=== PATIENT | female | born 1970 | race Caucasian/White ===

== ENCOUNTER 2018-04-09 23:13 | Inpatient (IN) | payer MEDICARE, MEDICAID ==
[~2018-04-09] VITALS: Ht 162.6 cm; Wt 71.4 kg
[~2018-04-09 23:13] MED LIST: ALBU8.5H8 INH; CLON1TAB5 PO; CLON2TAB11 PO; CYCL-289 PO; DOCU100C36 PO; FENT1PAT2 TP; HYDR200T81 PO; ONDA4TAB5 PO; PRED-170 PO; PREG200C PO; RANI150T43 PO; SCOP1PAT11 TD; SUMA6VIA SQ; TOPI100T PO
[2018-04-09] MEDS ORDERED: IV NORMAL SALINE 1000 ML BAG IV ONE (23:30)
[2018-04-09] MEDS ORDERED: ONDANSETRON 4 MG/2 ML VIAL IV ONE (23:30)
[2018-04-09] MEDS ORDERED: PANTOPRAZOLE SODIUM 40 MG VIAL IV ONE (23:30)
[2018-04-09] MEDS ORDERED: HYDROMORPHONE 1 MG/1 ML DISP.SYRIN IV ONE (23:30)
[2018-04-09] MEDS ORDERED: HYDROMORPHONE 2 MG/1 ML DISP.SYRIN ONE (23:54)
[2018-04-09] MEDS ORDERED: PANTOPRAZOLE SODIUM 40 MG VIAL ONE (23:54)
[2018-04-09] MEDS ORDERED: ONDANSETRON 4 MG/2 ML VIAL ONE (23:54)
[2018-04-10] VITALS (8 sets, daily range): BP systolic 104–136; BP diastolic 37–70
[2018-04-10] MEDS ORDERED: diphenhydrAMINE 50 MG/1 ML VIAL ONE ×4 (00:04→02:33)
[2018-04-10] MEDS ORDERED: diphenhydrAMINE 50 MG/1 ML VIAL IV ONE ×3 (00:15→11:00)
[2018-04-10 00:23] LABS: BASOPHILS # (AUTO) 0.1 K/uL (0.0-8.0); BASOPHILS % (AUTO) 0.7 % (0.0-2.0); EOSINOPHILS % (AUTO) 0.4 % (0.0-7.0); HEMATOCRIT 41.4 % (31.2-41.9); HEMOGLOBIN 14.1 g/dL (10.9-14.3); LYMPHOCYTES # (AUTO) 1.4 K/uL (20.0-40.0); LYMPHOCYTES % (AUTO) 18.1 % (20.5-51.5); MEAN CORPUSCULAR HEMOGLOBIN 30.5 uug (24.7-32.8); MEAN CORPUSCULAR HGB CONC 34 g/dL (32.3-35.6); MEAN CORPUSCULAR VOLUME 89.7 fL (75.5-95.3); MONOCYTES # (AUTO) 0.6 K/uL (2.0-10.0); MONOCYTES % (AUTO) 7.5 % (0.0-11.0); NEUTROPHILS # (AUTO) 5.6 K/uL (1.8-8.9); NEUTROPHILS % (AUTO) 73.3 % (38.5-71.5); PLATELET COUNT (AUTO) 205 K/uL (179-408); RED BLOOD CELL COUNT(AUTO) 4.61 MIL/uL (3.63-4.92); WHITE BLOOD COUNT (AUTO) 7.6 K/uL (3.8-11.8)
[2018-04-10 00:29] LABS: CREATININE 0.9 mg/dL (0.6-1.3); POTASSIUM 3.5 mmol/L (3.5-5.1)
--- NOTE | 2018-04-10 00:40 | NUR ---
PT IN ROUTE TO CT IN [facility] WITH TRANSPORTER
[2018-04-10 00:42] LABS: BILIRUBIN,DIRECT 0.3 mg/dL (0.0-0.2); BILIRUBIN,TOTAL 1.6 mg/dL (0.2-1.0); TOTAL PROTEIN, SERUM 7.4 g/dL (6.4-8.2)
--- NOTE | 2018-04-10 00:58 | NUR ---
PT RETURNS FROM CT IN [facility] WITH TRANSPORTER
--- NOTE | 2018-04-10 01:29 | NUR ---
PT IN BED QUIETLY USING CELL PHONE. PT IS CALM AND COOPERATIVE. PT REPORTS BEING IN LESS PAIN THAN AT TIME OF ARRIVAL TO ED. NO SIGNS OF DISTRESS WITNESSED AT THIS TIME.
[2018-04-10] MEDS ORDERED: HYDROMORPHONE 2 MG/1 ML DISP.SYRIN ONE (02:09)
[2018-04-10] MEDS ORDERED: HYDROMORPHONE 1 MG/1 ML DISP.SYRIN IV ONE (02:15)
[2018-04-10] MEDS ORDERED: IV NORMAL SALINE 250 ML IV ONE (02:45)
[2018-04-10] MEDS ORDERED: SWABABLE VALVE TRANSFER SET EA MC ONE (02:45)
[2018-04-10] MEDS ORDERED: IOHEXOL 350 100 ML INFUS..BTL ONE (02:45)
--- NOTE | 2018-04-10 03:30 | NUR ---
PT IN ROUTE BACK TO CT FOR CTA IN [facility] WITH TRANSPORTER
--- NOTE | 2018-04-10 04:02 | NUR ---
PT RETURNS FROM CT IN [facility] WITH TRANSPORTER
[2018-04-10] MEDS ORDERED: benadryl PO (04:52)
[2018-04-10] MEDS ORDERED: desmopressin IV (04:52)
[2018-04-10] MEDS ORDERED: metoprolol PO (04:52)
[2018-04-10] MEDS ORDERED: LOSA25TA13 PO (04:52)
[2018-04-10] MEDS ORDERED: ESTR0.5T PO (04:52)
--- NOTE | 2018-04-10 04:55 | NUR ---
REPORT GIVEN TO TELEMETRY NURSE, WALDEMAR
[2018-04-10] MEDS ORDERED: MUPI22OI2 (04:57)
[2018-04-10] MEDS ORDERED: SUMATRIPTAN SUCCINATE 6 MG/0.5 ML VIAL SQ PRN ×3 (05:00→12:00)
[2018-04-10] MEDS ORDERED: ONDANSETRON HCL 4 MG TABLET PO PRN (05:00)
[2018-04-10] MEDS ORDERED: BENADRYL 50 MG PO PRN (05:00)
[2018-04-10] MEDS ORDERED: HYDROMORPHONE 1 MG/1 ML DISP.SYRIN IV PRN (05:15)
[2018-04-10] MEDS ORDERED: MAGNESIUM HYDROXIDE 30 ML LIQUID UDC PO PRN (05:15)
[2018-04-10] MEDS ORDERED: ACETAMINOPHEN 325 MG TABLET PO PRN (05:15)
[2018-04-10] MEDS ORDERED: HYDROCODONE/APAP 5-325MG TABLET PO PRN (05:15)
[2018-04-10] MEDS ORDERED: Z GUARD REMEDY PASTE 57 GM TUBE TOP PRN (05:15)
--- NOTE | 2018-04-10 05:30 | NUR ---
ADMITTED PATIENT IN THE TELE UNIT UNDER THE CARE DR. KAUFFMAN, BELONGING LIST DONE.
--- NOTE | 2018-04-10 05:30 | NUR ---
Pt. admitted to TELEMETRY, under care of Dr. KAUFFMAN Belongs List completed
[2018-04-10] MEDS ORDERED: IV NS 1000 ML 1,000 ML IV PRN (06:00)
--- NOTE | 2018-04-10 07:30 | NUR ---
Awake, laert, oriented x 4, on high back rest, eating breakfast. Discussed plan of care
[2018-04-10] MEDS ORDERED: HYDROXYCHLOROQUINE SULFATE 200 MG TABLET PO SCH (09:00)
[2018-04-10] MEDS: LOSARTAN POTASSIUM 25 MG TABLET PO SCH (09:00)
[2018-04-10] MEDS ORDERED: FENTANYL 12 MCG/HR PATCH TD SCH (09:00)
[2018-04-10] MEDS ORDERED: ESTRADIOL 1 MG TABLET PO SCH (09:00)
[2018-04-10] MEDS ORDERED: DOCUSATE SODIUM 100 MG CAPSULE PO SCH (09:00)
[2018-04-10] MEDS: HYDROMORPHONE 2 MG/1 ML DISP.SYRIN IV PRN ×2 (09:10→18:39)
[2018-04-10] MEDS ORDERED: CLONAZEPAM 1 MG TABLET PO ONE (09:30)
[2018-04-10] MEDS ORDERED: ESTR42.53 VG (11:23)
--- NOTE | 2018-04-10 11:30 | NUR ---
Transported to [facility] for MRA brain
[2018-04-10] MEDS ORDERED: SCOPOLAMINE HYDROBROMIDE 1.5 MG PATCH TD SCH ×2 (11:34→14:45)
[2018-04-10] MEDS ORDERED: METO-357 PO (11:46)
[2018-04-10] MEDS ORDERED: GADODIAMIDE 2.5 MMOL/5 ML VIAL ONE (12:04)
[2018-04-10] MEDS ORDERED: GADODIAMIDE 5 MMOL/10 ML VIAL ONE (12:04)
[2018-04-10] MEDS ORDERED: ALBUTEROL SULFATE 2.5 MG/3 ML NEBU NEB PRN (12:45)
[2018-04-10] MEDS ORDERED: ALBUTEROL SULFATE 8 GM HFA.AER.AD INH PRN (12:45)
--- NOTE | 2018-04-10 13:10 | NUR ---
Patient came back to room 218 from [facility] via ambulance in stable condition. No acute distress. coupon collection clerk was placed back on. IV fluids was connected. Lunch tray was served. Will continue to monitor
[2018-04-10] MEDS: predniSONE 50 MG TABLET PO SCH (14:46)
[2018-04-10] MEDS ORDERED: HYDR20CR3 TOP (14:56)
[2018-04-10] MEDS ORDERED: ESCI5TAB PO (14:56)
--- NOTE | 2018-04-10 17:43 | NUR ---
Patient complained of blurred vision both eyes. Pupils checked, dilated. No other deficits noted. Vital signs checked. BG checked 117. Called Code stroke. Felipe Key informed. Patient transported to CT scan by bed
[2018-04-10] MEDS: HYDROCORTISONE 2.5% CREAM 20 GM TUBE TOP SCH (18:00)
[2018-04-10] MEDS: ESCITALOPRAM OXALATE 10 MG TABLET PO SCH (18:00)
[2018-04-10] MEDS: MUPIROCIN 2% OINT 22 GM TUBE TP SCH (18:00)
--- NOTE | 2018-04-10 18:20 | NUR ---
Patient in from Medical floor via bed accompanied by nurses. Code stroke in progress pt. just back from head ct. Felipe N.P. at bedside. Neuro roman pt. AAOX4. Vitals signs stable. At this time orders to bolus pt with 500 Ns. pt. also medicated for pain and c/of nausea and vomiting.
[2018-04-10] MEDS ORDERED: ONDANSETRON 4 MG/2 ML VIAL IV PRN (18:30)
[2018-04-10] MEDS: ONDANSETRON 4 MG/2 ML VIAL IV PRN (18:51)
[2018-04-10] MEDS ORDERED: IV NORMAL SALINE 500 ML IV ONE (19:00)
[2018-04-10] MEDS ORDERED: IV NORMAL SALINE 500 ML BAG IV ONE (19:00)
--- NOTE | 2018-04-10 19:15 | NUR ---
JOHN BACA CAME AND SAW PATIENT . WITH ORDERS TO TRANSFER PATIENT TO CCU FOR CLOSE MONITORING AFTER A CODE STROKE . NEEDS MRA OF THE NECK AND MRI WITH AND WITH OUT CONTRAST . AMBULANCE ARRANGEMENT DONE AND SHE NEEDS A PICC LINE IVF ACCESS .
--- NOTE | 2018-04-10 19:37 | NUR ---
Report given to rn. Lopez pending procedures and orders endorse. Nurse informed to obtain consent for procedure.
--- NOTE | 2018-04-10 20:00 | NUR ---
[facility] NURSING STROKE ASSESSMENT DONE ,SCORE = 1.ABLE AAOX4. MAEX4. ABLE TO FOLLOW AND ABLE TO ANSWERS QUESTIONS . MRI QUESTIONER DONE AND PATIENT SIGN THE CONSENT FORM .
--- NOTE | 2018-04-10 20:15 | NUR ---
VOIDED USING THE BEDPAN , PERINEAL CARE ASSISTED , PATIENT ABLE TO WASH PRIVATE AREA WITH WASH CLOTH .
--- NOTE | 2018-04-10 20:30 | NUR ---
PICC LINE RN PLACE LEFT UPPER ARM 3 LUMEN PICC LINE IVF ACCESS . OK TO USE.
--- NOTE | 2018-04-10 20:30 | NUR ---
WARM PATIENT FOOD , WANTS TO EAT , PATIENT ABLE TO SIT AT THE SIDE OF THE BED AND ABLE TO FEED SELF . NO DIFFICULTY SWALLOWING .TOLERATED FOOD .
[2018-04-10] MEDS: TOPIRAMATE 25 MG TABLET PO SCH (21:00)
[2018-04-10] MEDS ORDERED: DOCUSATE SODIUM 250 MG CAPSULE PO PRN (21:00)
[2018-04-10] MEDS ORDERED: DOCUSATE SODIUM 250 MG CAPSULE PO SCH (21:00)
--- NOTE | 2018-04-10 21:00 | NUR ---
KEPT PATIENT ON BEDREST ,BED RENEE SERVED PATIENT VOIDED , CLEAR YELLOWISH URINE ABOUT 300 ML . PERINEAL CARE DONE .
[2018-04-10] MEDS: diphenhydrAMINE 50 MG CAPSULE PO PRN (21:13)
--- NOTE | 2018-04-10 21:13 | NUR ---
GIVEN BENADRYL PRN 50 MG PO ,FOR GENERALIZED BODY ITCHING .
--- NOTE | 2018-04-10 21:40 | NUR ---
AMBULANCE transportation here to bring patient to [place] for MRI WITH AND WITH OUT CONTRAST AND MRA OF THE NECK .report given to chemotherapist and RN.
--- NOTE | 2018-04-10 23:50 | NUR ---
BACK FROM CENTER TOLERATED THE TEST . MRI BRAIN AND MRA NECK COMPLETED.CONNECTED BACK TO CCU MONITOR .PATIENT AAOX4/MAEX4.
[2018-04-11] VITALS (16 sets, daily range): BP systolic 84–152; BP diastolic 41–80
[2018-04-11] MEDS: IV NS 1000 ML 1,000 ML IV PRN ×3 (00:11→23:16)
[2018-04-11] MEDS: CLONAZEPAM 1 MG TABLET PO SCH ×2 (00:11→20:29)
[2018-04-11] MEDS: HYDROMORPHONE 2 MG/1 ML DISP.SYRIN IV PRN ×2 (00:16→04:25)
--- NOTE | 2018-04-11 00:16 | NUR ---
GIVEN DILAUDID PRN PER REQUEST, PER PATIENT 04/06 HEADACHE .
--- NOTE | 2018-04-11 00:20 | NUR ---
REPORTS OF THE MRI AND MRA CALLED TO [facility] .MRA NECK W/O CONTRAST UNREMARKABLEAND MRI OF THE BRAIN UNREMARKABLE .NO ORDERS MADE .
--- NOTE | 2018-04-11 00:45 | NUR ---
REQUESTED SNACKS GIVEN 2 VANILLA PUDDINGS AND 2 JELLO HOB UP ,PATIENT ABLE TO FEED SELF .NO PROBLEM SWALLOWING . ATE 100%.
--- NOTE | 2018-04-11 04:10 | NUR ---
PATIENT VOIDED ,ASSISTED AND PLACED BEDPAN . VOIDED ABOUT 400 ML OF YELLOWISH URINE . COLLECTED FOR URINE C AND S AND URINALYSIS, PATIENT REQUESTED SNACKS GIVEN 2 VANILLA PUDDING AND 2 JELLO ,HOB UP . PATIENT ABLE TO FEED SELF ATE 100%.
--- NOTE | 2018-04-11 04:25 | NUR ---
GIVEN DILAUDID PRN FOR BACK PAIN AND LEFT EYE PAIN PER PATIENT PAIN LEVEL IS 8 /10 DULL TO SHARP PAIN .
--- NOTE | 2018-04-11 04:51 | NUR ---
[facility] COLLECTED AND FLUSHED PICC LINE . SEND MRSA AND URINE FOR C AND S AND URINALYSIS .
[2018-04-11] MEDS ORDERED: diphenhydrAMINE 50 MG/1 ML VIAL ONE (05:04)
[2018-04-11 05:14] LABS: *BILIRUBIN,URIN NEGATIVE (NEGATIVE); *BLOOD, URINE NEGATIVE (NEGATIVE); *CLARITY,URINE CLEAR (CLEAR); *COLOR,URINE YELLOW (YELLOW); *KETONES,URINE NEGATIVE (NEGATIVE); *PROTEIN,URINE NEGATIVE (NEGATIVE); LEUKOCYTE ESTERASE ,URINE NEGATIVE (NEGATIVE); NITRITE, URINE NEGATIVE (NEGATIVE); UGLUCOSE TRACE (NEGATIVE)
[2018-04-11] MEDS ORDERED: diphenhydrAMINE 50 MG CAPSULE ONE (05:14)
[2018-04-11 05:15] LABS: CREATININE 0.8 mg/dL (0.6-1.3); MAGNESIUM 1.9 mg/dL (1.8-2.4); PHOSPHOROUS 2.9 mg/dL (2.5-4.9); POTASSIUM 3.3 mmol/L (3.5-5.1)
[2018-04-11 05:17] LABS: BASOPHILS % (AUTO) 0.1 % (0.0-2.0); HEMATOCRIT 37.1 % (31.2-41.9); HEMOGLOBIN 12.5 g/dL (10.9-14.3); LYMPHOCYTES # (AUTO) 0.6 K/uL (20.0-40.0); LYMPHOCYTES % (AUTO) 9.9 % (20.5-51.5); MEAN CORPUSCULAR HEMOGLOBIN 30.2 uug (24.7-32.8); MEAN CORPUSCULAR HGB CONC 34 g/dL (32.3-35.6); MEAN CORPUSCULAR VOLUME 89.5 fL (75.5-95.3); MONOCYTES # (AUTO) 0.2 K/uL (2.0-10.0); PLATELET COUNT (AUTO) 204 K/uL (179-408); RED BLOOD CELL COUNT(AUTO) 4.15 MIL/uL (3.63-4.92); WHITE BLOOD COUNT (AUTO) 5.8 K/uL (3.8-11.8)
[2018-04-11] MEDS: diphenhydrAMINE 50 MG CAPSULE PO PRN ×3 (05:19→19:44)
[2018-04-11 05:20] LABS: BACTERIA,URINE NONE SEEN /HPF (NONE SEEN); MUCUS,URINE FEW /LPF (0-FEW); RBC,URINE NONE SEEN /HPF (0-3); SQUAMOUS EPITHELIAL CELL,UR FEW /HPF (NONE SEEN); WBC,URINE 0-3 /HPF (0-3)
[2018-04-11] MEDS: PANTOPRAZOLE SODIUM 40 MG TABLET.DR PO SCH (07:31)
[2018-04-11] MEDS: ESCITALOPRAM OXALATE 10 MG TABLET PO SCH (08:27)
[2018-04-11] MEDS: HYDROCORTISONE 2.5% CREAM 20 GM TUBE TOP SCH ×2 (08:27→16:17)
[2018-04-11] MEDS: MUPIROCIN 2% OINT 22 GM TUBE TP SCH ×2 (08:27→16:17)
[2018-04-11] MEDS: predniSONE 50 MG TABLET PO SCH (08:28)
[2018-04-11] MEDS: METOPROLOL SUCCINATE XL 50 MG TAB.SR.24H PO SCH ×2 (08:28→08:34)
[2018-04-11] MEDS: HYDROXYCHLOROQUINE SULFATE 200 MG TABLET PO SCH (08:28)
[2018-04-11] MEDS: LOSARTAN POTASSIUM 25 MG TABLET PO SCH (08:33)
--- NOTE | 2018-04-11 08:48 | NUR ---
patient reports continued vision changes. given to patient print out from pharmacy of side effects of imitrex.
[2018-04-11] MEDS ORDERED: PATIENT MAY USE OWN MED- MD OK VG SCH (09:00)
--- NOTE | 2018-04-11 10:00 | NUR ---
DOCTOR AMARILYS IN THE UNIT TO SEE PATIENT. WILL CHANGE MEDICAL STATUS TO TELE.
[2018-04-11] MEDS ORDERED: KETOROLAC TROMETHAMINE 30 MG INJ IVP PRN (10:45)
[2018-04-11] MEDS ORDERED: POTASSIUM CHLORIDE 20 MEQ TAB.PRT.SR PO ONE (10:45)
[2018-04-11] MEDS ORDERED: HYDROMORPHONE 1 MG/1 ML DISP.SYRIN IV PRN (11:15)
[2018-04-11] MEDS: HYDROMORPHONE HCL 2 MG TABLET PO PRN ×2 (11:26→17:03)
--- NOTE | 2018-04-11 11:34 | NUR ---
PT IN ROOM TO WALK PATIENT.
--- NOTE | 2018-04-11 11:42 | NUR ---
PHYSICAL THERAPY RECOMMENDS NO THERAPY. WILL HAVE PATIENT CONTINUE TO WALK WITH A WALKER WHILE IN THE HOSPITAL. PATIENT STATES SHE HAS WALKER AT HOME THAT SHE USES
[2018-04-11] MEDS: ONDANSETRON 4 MG/2 ML VIAL IV PRN (17:03)
--- NOTE | 2018-04-11 19:10 | NUR ---
RECEIVED PT AWAKE ON BED, AAOX4, NO SOB, DENIES ANY CHEST PAIN. ON TELE SINUS RHYTHM WITH HR OF 64. PICC LINE ON L ARM, PATENT AND INTACT. IV SITE ON L WRIST, PATENT AND INTACT. SAFETY MEASURES INITIATED, CALL BLUE WITHIN REACH.
[2018-04-11] MEDS: TOPIRAMATE 25 MG TABLET PO SCH (20:29)
--- NOTE | 2018-04-11 20:50 | NUR ---
PT COMPLAINT OF MOUTH TWITCHING AND FRONTAL HEADACHE. NEURO ASSESSMENT INITIATED, PT AAOX4, ABLE TO KEEP HANDS RAISED AND STEADY, AND WITH CLEAR SPEECH PATTERN. VITAL SIGNS FOLLOWS: 81 HR, SINUS RHYTHM, 97% O2 SAT, BP 127/68, 18RR. PHUONG BILLPOSTING SUPERVISOR NOTIFIED ON PT STATUS. NO ORDERS RECEIVED.
[2018-04-11] MEDS: diphenhydrAMINE 50 MG/1 ML VIAL IV PRN (22:54)
[2018-04-12] MEDS: HYDROMORPHONE HCL 2 MG TABLET PO PRN ×2 (02:05→08:35)
[2018-04-12] MEDS: ONDANSETRON 4 MG/2 ML VIAL IV PRN (02:05)
[2018-04-12 03:20] VITALS: BP 128/64
[2018-04-12] MEDS: diphenhydrAMINE 50 MG/1 ML VIAL IV PRN (05:41)
[2018-04-12] MEDS: PANTOPRAZOLE SODIUM 40 MG TABLET.DR PO SCH (06:12)
[2018-04-12 07:53] VITALS: BP 124/62
[2018-04-12] MEDS: ESCITALOPRAM OXALATE 10 MG TABLET PO SCH (08:23)
[2018-04-12] MEDS: predniSONE 50 MG TABLET PO SCH (08:23)
[2018-04-12] MEDS: HYDROXYCHLOROQUINE SULFATE 200 MG TABLET PO SCH (08:24)
[2018-04-12] MEDS: METOPROLOL SUCCINATE XL 50 MG TAB.SR.24H PO SCH (08:25)
[2018-04-12] MEDS: LOSARTAN POTASSIUM 25 MG TABLET PO SCH (08:25)
[2018-04-12] MEDS: MUPIROCIN 2% OINT 22 GM TUBE TP SCH (08:27)
[2018-04-12] MEDS: HYDROCORTISONE 2.5% CREAM 20 GM TUBE TOP SCH (08:27)
[2018-04-12] MEDS ORDERED: FENTANYL 75 MCG/HR PATCH EACH TD SCH (09:00)
--- NOTE | 2018-04-12 11:17 | NUR ---
SEEN BY DR BUSTILLOS SEE NOTES
[2018-04-12 11:42] VITALS: BP 150/72
[2018-04-12] MEDS ORDERED: HYDROCODONE/APAP 5-325MG TABLET PO PRN (11:45)
--- NOTE | 2018-04-12 12:27 | NUR ---
PATIENT DEMANDED TO HAVE DILAUDID IV AND BENADRYL IN SPITE OF BEING DISCONTINUED BY MD. BECAME UPSET AND PREFERS TO GO AMA. MD AND DATA SOFTWARE ENGINEER NOTIFIED
--- NOTE | 2018-04-12 13:01 | NUR ---
PATIENT REFUSED TO SIGN AMA PAPERS, LEFT HOSPITAL AT 1300 WITHOUT ANY DISTRESS
[2018-04-15] MEDS ORDERED: diphenhydrAMINE 50 MG/1 ML VIAL IV ONE (20:00)
== END 2018-04-12 15:24 | disposition left against medical advice (07) | DRG 69 ==
LOC: ER 23:16 → TELE 04-10 05:17 → CCU 04-10 18:16 → TELE 04-11 16:34 → MED 04-12 13:02
PROVIDERS: ADMIT Internal Medicine; ATTEND Nurse Practitioner Acute Care
DX: I67.848 Other cerebrovascular vasospasm and vasoconstriction (principal); D68.0 Von Willebrand disease; R17 Unspecified jaundice; T39.8X5A Adverse effect of other nonopioid analgesics and antipyretics, not elsewhere classified, initial encounter; Y92.039 Unspecified place in apartment as the place of occurrence of the external cause; R40.2410 Glasgow coma scale score 13-15, unspecified time; F07.81 Postconcussional syndrome; M06.9 Rheumatoid arthritis, unspecified; M32.9 Systemic lupus erythematosus, unspecified; E87.6 Hypokalemia; I10 Essential (primary) hypertension; M79.7 Fibromyalgia; F43.10 Post-traumatic stress disorder, unspecified; F41.0 Panic disorder [episodic paroxysmal anxiety]; G47.00 Insomnia, unspecified; Z90.710 Acquired absence of both cervix and uterus; J45.909 Unspecified asthma, uncomplicated; F32.9 Major depressive disorder, single episode, unspecified; G44.309 Post-traumatic headache, unspecified, not intractable; S06.9X0S Unspecified intracranial injury without loss of consciousness, sequela; X58.XXXS Exposure to other specified factors, sequela
CPT/HCPCS: 36415; 70030-TC; 70450; 70496; 70553; 71045; 83605; 83690; 83735; 84100; 84703; 85025; 85730; 86850; 86900; 86901; 87040; 87086; 92523; 92610; 93005; 97165; A4663; C9113; J1170; J1200; J2405; J7030; J7050; J7512; Q0163; Q9967